=== PATIENT | male | born 1940 | race Caucasian/White ===

== ENCOUNTER → 2016-07-08 | Outpatient (CLI) | payer MEDICARE ==
[2016-07-08 08:58] LABS: ANION GAP 13.2 MEQ/L (3-15); CALCULATED IONIZED CALCIUM 4.2 mg/dL (3.8-4.6); TOTAL PROTEIN 7.2 g/dL (6.4-8.5)
== END ==
LOC: LAB 08:30
PROVIDERS: ATTEND Family Medicine
DX: E11.9 Type 2 diabetes mellitus without complications (principal); E78.4 Other hyperlipidemia; I10 Essential (primary) hypertension
CPT/HCPCS: 36415; 80053; 80061; 83036

== ENCOUNTER → 2016-10-07 | Outpatient (REF) | payer MEDICARE ==
[~2016-10-07] MED LIST: ASPI-586 PO; ATN50T PO; CHOL400C8 PO; CLN.1T PO; CLOB15CR3 TP; DOCU-163 PO; GARL1CAP7 PO; LOVA40TA2 PO; METF500T4 PO; MULT-1034 PO; OLME1TAB3 PO; OMG1KC PO; POLY17PO6 PO; SPIR25TA PO
== END ==
LOC: LAB 11:13
PROVIDERS: ATTEND Family Medicine
DX: E11.9 Type 2 diabetes mellitus without complications (principal)
CPT/HCPCS: 83036